=== PATIENT | male | born 1990 | race African-American/Black ===

== ENCOUNTER 2020-07-18 18:04 | Inpatient (IN) | payer SELFPAY ==
[~2020-07-18 18:04] MED LIST: Iopamidol-370 76% 500 ML 1 ML ONE
[2020-07-18 18:59] LABS: #Basophils 0.1 thou/uL (0.0-0.2); #Lymphocytes 1.8 thou/uL (1.20-3.40); #Monocytes 1.5 thou/uL (0.11-0.59); #Neutrophils 12.4 thou/uL (1.40-6.50); %Basophils 0.5 % (0.0-1.0); %Eosinophils 0.2 % (0.0-10.0); %Lymphocytes 11.3 % (21.0-51.0); %Monocytes 9.6 % (0.0-10.0); %Neutrophils 78.4 % (42.0-75.0); Hemoglobin 13.9 g/dL (14.0-18.0); Mean Corpuscular HGB CONC 34.1 g/dL (32.0-36.0); Mean Corpuscular Hemoglobin 29.9 pg (27.0-31.0); Mean Corpuscular Volume 87.5 fL (78.0-98.0); Mean Platelet Volume 8.7 fL (7.4-10.4); Platelet Count 179 thou/uL (130-400); RBC Distribution Width 11.6 % (11.5-14.5); Red Blood Cell (RBC) Count 4.67 mill/uL (4.70-6.10); White Blood Cell (WBC) Count 15.8 thou/uL (4.8-10.8)
[2020-07-18 19:17] LABS: ALT (SGPT) 29 U/L (8-55); AST (SGOT) 29 U/L (5-34); Albumin 4.1 g/dL (3.5-5.0); Alkaline Phosphatase 83 U/L (40-110); Anion Gap 15 mmol/L (10-20); BUN (Urea Nitrogen) 8 mg/dL (8.9-20.6); Bilirubin, Total 1.2 mg/dL (0.2-1.2); Calc. Creatinine Clearance 0 mL/min (70-130); Calcium 9.2 mg/dL (7.8-10.44); Carbon Dioxide 27 mmol/L (22-29); Chloride 95 mmol/L (98-107); Globulin 4.1 g/dL (2.4-3.5); Glucose 109 mg/dL (70-105); Lipase Less than 4 U/L (8-78); Potassium 3.8 mmol/L (3.5-5.1); Protein, Total 8.2 g/dL (6.0-8.3); Sodium 133 mmol/L (136-145)
[2020-07-18 22:03] LABS: Bilirubin Negative (Negative); Blood, Urine Negative (Negative); Clarity Clear (Clear); Glucose, Urine (Dipstick) Normal (Negative); Ketone, Urine Trace mg/dL (Negative); Leukocyte 250 Leu/uL (Negative); Mucous/LPF 1+ LPF (<2+); Nitrite Negative (Negative); Protein, Urine (Dipstick) 50 mg/dL (Neg-Trace); RBC/HPF 0-3 HPF (0-3); Renal Epithelial 0-3 HPF (None Seen); Specific Gravity, Urine 1.026 (1.002-1.036); Squamous Epithelial None Seen HPF (0-3); Urobilinogen 3 mg/dL (Less than 2); WBC/HPF 21-50 HPF (0-3)
[2020-07-18 22:10] LABS: Bacteria/HPF 2+ HPF (None Seen)
[2020-07-19] MEDS ORDERED: Piperacillin/Tazobactam 3.375 GM VIAL ONE ×3 (00:45→18:10)
[2020-07-19 05:32] LABS: SARS-CoV-2 NAA Rapid Test Not Detected (NotDetected)
--- NOTE | 2020-07-19 07:58 | CT ---
CT OF THE ABDOMEN AND PELVIS WITH IV CONTRAST: INDICATION: History of abdominal pain, melena, and hematuria. COMPARISON: None. FINDINGS: There is mild bibasilar atelectasis, left greater than right. Small hiatal hernia. There are peripheral areas of portal venous gas seen within the anterior right hepatic lobe and later al left hepatic lobe. The gallbladder, pancreas, adrenal glands, and kidneys appear within normal limits. There is a contained perforation involving the medial aspect of the descending colon measuring 3.7 x 8.5 cm in its greatest mediolateral, AP, and craniocaudad dimensions respectively. No definite drain able fluid collection is evident. There are a few scattered diverticula involving the colon. There is a normal appendix I the right lower quadrant. Small bowel is of normal caliber. The visualized s tomach is unremarkable-appearing. Bladder, rectum, and perirectal soft tissues are unremarkable appearing. No acute osseous abnormalit y is evident. IMPRESSION: 1. Findings of a focal short segment of prominent narrowing involving the descending colon with a co ntained rupture seen along the medial aspect of the descending colon. There is inflammatory strandin g and a gas collection seen adjacent to the contained perforation. Findings may be related to a shor t segment of diverticulitis but malignancy is not excluded. There is portal venous gas within the li concepción suspicious for gas dissection into the portal venous system. Surgical consultation is recommende d. 2. Findings called to Dr. Torres at 12:48 a.m. on 07/19/2020. CODE CR POS: LYN
[2020-07-19] MEDS ORDERED: Ondansetron HCl/PF 4 MG in Sodium Chloride 0.9% 50 ML IVPB PRN (08:14)
[2020-07-19] MEDS: Sodium Chloride 0.9% 1,000 ML IV SCH ×2 (08:25→20:16)
[2020-07-19] MEDS: Morphine 2 MG/ML VIAL SLOW IVP PRN ×3 (08:27→16:40)
[2020-07-19] MEDS: Pantoprazole 40 MG VIAL IVP SCH (08:28)
[2020-07-19] MEDS ORDERED: Sodium Chloride 0.9% 1,000 ML IV SCH (08:30)
--- NOTE | 2020-07-19 08:49 | HP ---
CHIEF COMPLAINT: Left lower quadrant abdominal pain. HISTORY OF PRESENT ILLNESS: The patient is a 29-year-old male who developed sudden onset of severe left lower quadrant abdominal pain Oz morning associated with nausea, vomiting, progressed over the weekend, associated with fever to 101. Last bowel movement was yesterday. PAST MEDICAL HISTORY: Otherwise obesity. PAST SURGICAL HISTORY: None. ALLERGIES: NO KNOWN DRUG ALLERGIES. MEDICATIONS: No medications. SOCIAL HISTORY: He is engaged to be . Smokes one pack per day. Social alcohol. FAMILY HISTORY: Noncontributory. PHYSICAL EXAMINATION: VITAL SIGNS: Temperature 99.3, pulse 97, blood pressure 111/68. GENERAL: Obese male, lying still, awake, alert. HEENT: Unremarkable. LUNGS: Clear. HEART: Regular rate and rhythm. ABDOMEN: Obese, soft, tender in the left lower quadrant. EXTREMITIES: Unremarkable. I do not feel any masses or hernias. LABORATORY DATA: His white count is 15.8, H and H of 13 and 40, and platelet count 179. Electrolytes; elevated glucose at 109. Urine, 21 to [address] cells[address] COVID negative. CT scan shows what appears to be a perforated sigmoid diverticulum. There was a bubble of extraluminal air. No defined abscess cavity that could be drained. ASSESSMENT: Local perforation of sigmoid diverticula. PLAN: Admit. Bowel rest. IV antibiotics. If he improves, delayed surgery. If not, more urgent surgery with diverting colostomy. Job ID: [id number]
[2020-07-19 08:51] LABS: #Basophils 0.1 thou/uL (0.0-0.2); #Eosinphils 0.1 thou/uL (0.0-0.7); #Lymphocytes 1.5 thou/uL (1.20-3.40); #Monocytes 1.4 thou/uL (0.11-0.59); #Neutrophils 9.2 thou/uL (1.40-6.50); %Basophils 0.5 % (0.0-1.0); %Lymphocytes 12.2 % (21.0-51.0); %Monocytes 11.5 % (0.0-10.0); %Neutrophils 74.9 % (42.0-75.0); Hemoglobin 12.7 g/dL (14.0-18.0); Mean Corpuscular Hemoglobin 30.5 pg (27.0-31.0); Mean Corpuscular Volume 89.6 fL (78.0-98.0); Mean Platelet Volume 8.3 fL (7.4-10.4); Platelet Count 174 thou/uL (130-400); RBC Distribution Width 11.6 % (11.5-14.5); Red Blood Cell (RBC) Count 4.18 mill/uL (4.70-6.10); White Blood Cell (WBC) Count 12.2 thou/uL (4.8-10.8)
[2020-07-19] MEDS ORDERED: metroNIDAZOLE 250 MG TAB ONE (09:01)
[2020-07-19] MEDS ORDERED: metroNIDAZOLE 500 MG/100 ML BAG ONE ×2 (09:03→17:14)
[2020-07-19] MEDS: metroNIDAZOLE 500 MG in Premix Bag 1 BAG IVPB SCH ×2 (09:04→17:15)
[2020-07-19 09:15] LABS: Anion Gap 12 mmol/L (10-20); BUN (Urea Nitrogen) 8 mg/dL (8.9-20.6); Calc. Creatinine Clearance 1 mL/min (70-130); Calcium 8.6 mg/dL (7.8-10.44); Carbon Dioxide 27 mmol/L (22-29); Chloride 100 mmol/L (98-107); Glucose 119 mg/dL (70-105); Sodium 135 mmol/L (136-145)
[2020-07-19] MEDS ORDERED: Morphine 4 MG/ML VIAL ONE ×3 (12:33→16:28)
[2020-07-19] MEDS: Piperacillin/Tazobactam 3.375 GM in Sodium Chloride 0.9% 100 ML IVPB SCH ×2 (12:53→18:16)
[2020-07-19] MEDS: Morphine 4 MG/ML VIAL SLOW IVP PRN (20:17)
[2020-07-20] MEDS: Morphine 4 MG/ML VIAL SLOW IVP PRN ×2 (00:05→07:41)
[2020-07-20] MEDS: Piperacillin/Tazobactam 3.375 GM in Sodium Chloride 0.9% 100 ML IVPB SCH ×4 (00:05→16:17)
[2020-07-20] MEDS: Sodium Chloride 0.9% 1,000 ML IV SCH ×3 (01:57→16:18)
[2020-07-20 03:50] LABS: #Eosinphils 0.2 thou/uL (0.0-0.7); #Lymphocytes 1.5 thou/uL (1.20-3.40); #Monocytes 1.2 thou/uL (0.11-0.59); #Neutrophils 8.7 thou/uL (1.40-6.50); %Basophils 0.4 % (0.0-1.0); %Eosinophils 2.1 % (0.0-10.0); %Lymphocytes 12.8 % (21.0-51.0); %Monocytes 10.4 % (0.0-10.0); %Neutrophils 74.4 % (42.0-75.0); Hemoglobin 12.2 g/dL (14.0-18.0); Mean Corpuscular Hemoglobin 30.1 pg (27.0-31.0); Mean Corpuscular Volume 88.7 fL (78.0-98.0); Mean Platelet Volume 8.3 fL (7.4-10.4); Platelet Count 204 thou/uL (130-400); RBC Distribution Width 11.7 % (11.5-14.5); Red Blood Cell (RBC) Count 4.05 mill/uL (4.70-6.10); White Blood Cell (WBC) Count 11.7 thou/uL (4.8-10.8)
[2020-07-20 04:14] LABS: Anion Gap 11 mmol/L (10-20); BUN (Urea Nitrogen) 8 mg/dL (8.9-20.6); Calc. Creatinine Clearance 0 mL/min (70-130); Calcium 8.8 mg/dL (7.8-10.44); Carbon Dioxide 25 mmol/L (22-29); Chloride 101 mmol/L (98-107); Glucose 96 mg/dL (70-105); Potassium 4.1 mmol/L (3.5-5.1); Sodium 133 mmol/L (136-145)
[2020-07-20] MEDS: metroNIDAZOLE 500 MG in Premix Bag 1 BAG IVPB SCH ×3 (05:24→16:18)
[2020-07-20] MEDS: Pantoprazole 40 MG VIAL IVP SCH (07:43)
[2020-07-20] MEDS ORDERED: FLU VACC QS2020-21(6MOS UP)/PF 60 MCG/0.5 ML SYRINGE IM ONE (09:45)
--- NOTE | 2020-07-20 09:54 | PRG ---
DATE OF SERVICE: SUBJECTIVE: He was very hungry and tried to drink some fluids, but it made him cramp up, so he is just on water, but he is tolerating the water fine now. No nausea or vomiting. OBJECTIVE: VITAL SIGNS: He had a T-max of 101.6 at 8 o'clock last night, but he has been afebrile since. His heart rate is 97, blood pressure 128/77. GENERAL: He looks awake, alert, does not appear to be in any distress. He is still a little bit tender in the left lower quadrant. LABORATORY DATA: His white count is down to 11.7 from 15, H and H 12 and 35, platelet count of 204. Electrolytes are fine. ASSESSMENT: Diverticulitis with perforation contained. PLAN: If he spikes another temp, I would recommend a repeat CT of the abdomen. If he is developing an abscess, I would like to get him up ambulating. Job ID: [id number]
[2020-07-20] MEDS: Morphine 2 MG/ML VIAL SLOW IVP PRN ×3 (11:34→21:13)
[2020-07-20] MEDS ORDERED: Acetaminophen 325 MG TAB PO PRN (17:34)
[2020-07-20] MEDS: Ketorolac Tromethamine 30 MG/ML VIAL IVP PRN ×2 (18:22→23:59)
[2020-07-21 00:27] VITALS: BMI 42.9
[2020-07-21] MEDS: Sodium Chloride 0.9% 1,000 ML IV SCH ×3 (02:07→18:22)
[2020-07-21 04:06] LABS: #Eosinphils 0.3 thou/uL (0.0-0.7); #Lymphocytes 1.6 thou/uL (1.20-3.40); #Monocytes 1.1 thou/uL (0.11-0.59); #Neutrophils 8.3 thou/uL (1.40-6.50); %Basophils 0.3 % (0.0-1.0); %Lymphocytes 14.4 % (21.0-51.0); %Monocytes 9.8 % (0.0-10.0); %Neutrophils 72.5 % (42.0-75.0); Mean Corpuscular HGB CONC 33.2 g/dL (32.0-36.0); Mean Corpuscular Hemoglobin 29.4 pg (27.0-31.0); Mean Corpuscular Volume 88.5 fL (78.0-98.0); Platelet Count 236 thou/uL (130-400); RBC Distribution Width 11.8 % (11.5-14.5); Red Blood Cell (RBC) Count 4.07 mill/uL (4.70-6.10); White Blood Cell (WBC) Count 11.4 thou/uL (4.8-10.8)
[2020-07-21 04:33] LABS: Anion Gap 11 mmol/L (10-20); BUN (Urea Nitrogen) 7 mg/dL (8.9-20.6); Calc. Creatinine Clearance 221 mL/min (70-130); Calcium 8.8 mg/dL (7.8-10.44); Carbon Dioxide 27 mmol/L (22-29); Chloride 102 mmol/L (98-107); Glucose 92 mg/dL (70-105); Potassium 3.8 mmol/L (3.5-5.1); Sodium 136 mmol/L (136-145)
[2020-07-21] MEDS: Piperacillin/Tazobactam 3.375 GM in Sodium Chloride 0.9% 100 ML IVPB SCH ×5 (05:16→23:12)
[2020-07-21] MEDS: metroNIDAZOLE 500 MG in Premix Bag 1 BAG IVPB SCH ×3 (05:17→16:01)
[2020-07-21] MEDS: Ketorolac Tromethamine 30 MG/ML VIAL IVP PRN ×4 (06:45→23:11)
[2020-07-21] MEDS: Morphine 2 MG/ML VIAL SLOW IVP PRN (07:32)
[2020-07-21] MEDS: Pantoprazole 40 MG VIAL IVP SCH (07:32)
--- NOTE | 2020-07-21 12:24 | PRG ---
DATE OF SERVICE: 07/21/2020 SUBJECTIVE: The patient reports he is passing a little flatus, but he gets crampy abdominal pain any time he tries to eat and he has not had a bowel movement. Left lower quadrant pain persists. PHYSICAL EXAMINATION: VITAL SIGNS: Temperature is 98, pulse 77, blood pressure 145/73. GENERAL: He is up walking, in minimal distress. ABDOMEN: Soft, slightly distended. There is a little bit of tenderness in the left lower quadrant. LABORATORY DATA: His white count is 11.4, H/H 12 and 36, platelet count of 236. ASSESSMENT: Possible pelvic abscess. PLAN: CT of abdomen and pelvis. Job ID: [id number]
--- NOTE | 2020-07-21 12:38 | CT ---
CT ABDOMEN AND PELVIS WITH IV CONTRAST 07/21/2020 CLINICAL INFORMATION: Follow-up perforated diverticulitis COMPARISON: 07/19/2020 Technique: Multiple contiguous axial CT images are obtained through the abdomen and pelvis with IV contrast. Cor onal reformatted images are provided. FINDINGS: Lower Chest: Atelectasis is present right lung base. There is a trace left pleural effusion with cons olidation left lung base. Consolidation left lung base may be related to atelectasis, but pneumonia cannot be excluded. Vessels: Abdominal aorta is normal in caliber. Abdomen: Portal vein:Patent Gallbladder: Within normal limits for CT imaging. Liver: within normal limits. There was mention of portal venous gas seen on the prior examination whi ch is not visualized on the current exam. Spleen: within normal limits. Pancreas: within normal limits. Adrenals: within normal limits. Kidneys: within normal limits. Bowel: Again noted is focal narrowing with mild bowel wall thickening and adjacent inflammatory yi es involving the descending colon with evidence of adjacent focal contained perforation which is slightly more defined on current study with small air-fluid level now present. The collection measure s 8.3 cm craniocaudal x6.3 cm AP x5.2 cm transverse. Appendix: The appendix is visualized and normal in caliber. Peritoneum/retroperitoneum: Few mildly prominent left para-aortic lymph nodes are present likely reac tive in origin. No additional fluid collection is seen. Trace amount of fluid is seen in the left paracolic gutter. Abdominal Wall: within normal limits. Pelvis: Reproductive Organs: No pelvic masses. Bladder: within normal limits. Bones: No suspicious lytic or sclerotic osseous lesions. IMPRESSION: 1. Focal area of narrowing and suggested bowel wall thickening involving the descending colon with ev idence of adjacent inflammatory changes as well as contained rupture. The gas collection is now more defined with air-fluid level now present. Again, these findings may be related to short segment of diverticulitis with contained perforation, but malignancy cannot be excluded. 2. Interval development of trace left pleural effusion with consolidation left lung base. Area of con solidation may be related to atelectasis, but pneumonia is a possibility.
[2020-07-21] MEDS ORDERED: Iopamidol-370 76% 500 ML 1 ML ONE (13:53)
[2020-07-22] MEDS: Sodium Chloride 0.9% 1,000 ML IV SCH ×4 (02:41→20:00)
[2020-07-22] MEDS: metroNIDAZOLE 500 MG in Premix Bag 1 BAG IVPB SCH ×3 (05:01→17:40)
[2020-07-22] MEDS: Piperacillin/Tazobactam 3.375 GM in Sodium Chloride 0.9% 100 ML IVPB SCH ×4 (06:10→23:25)
[2020-07-22] MEDS: Ketorolac Tromethamine 30 MG/ML VIAL IVP PRN ×3 (06:15→23:25)
[2020-07-22 06:36] LABS: PTT 31.5 sec (22.9-36.1)
[2020-07-22 06:37] LABS: INR-International Normal Ratio 1.2; Prothrombin Time 15.3 sec (12.0-14.7)
--- NOTE | 2020-07-22 08:20 | PRG ---
DATE OF SERVICE: SUBJECTIVE: The patient had CT scan yesterday that showed he has a developing abscess that is amenable to CT drainage. I talked with the radiologist. He had him scheduled for procedure this morning. The patient refused to sign, stating he wanted to talk to me first, even though we had discussed yesterday, so hopefully we can get him back on schedule today. OBJECTIVE: GENERAL: He says he is feeling better. He is passing some gas. VITAL SIGNS: His temperature is 98.4, pulse 76, blood pressure 124/75. ABDOMEN: Soft. Minimal tenderness. LABORATORY DATA: His white count is 11.4, H and H 12 and 36, platelet count 236. Electrolytes are fine. ASSESSMENT: Diverticular abscess. PLAN: CT drainage. Job ID: [id number]
[2020-07-22] MEDS: Pantoprazole 40 MG VIAL IVP SCH (08:50)
[2020-07-22] MEDS ORDERED: Sodium Bicarbonate 2.5 MEQ/5 ML VIAL ONE (09:09)
[2020-07-22] MEDS ORDERED: Midazolam HCl 2 mg/2 ml Vial ONE (09:09)
[2020-07-22] MEDS ORDERED: Fentanyl 100 MCG/2 ML VIAL ONE (09:09)
[2020-07-22 11:53] LABS: Body Fluid Source Abscess Fluid
[2020-07-22 11:54] LABS: BF Color Gray; Clarity Cloudy/Turbid (Clear)
--- NOTE | 2020-07-22 13:20 | CT ---
EXAM: CT Retroperitoneal Abscess Drn DATE: 07/22/2020 9:20 AM INDICATION: Percutaneous drainage of a left lower quadrant pericolonic abscess COMPARISON: CT the abdomen and pelvis dated July 21, 2020 TECHNIQUE: Informed consent was obtained. Preprocedure CT images were obtained for guidance purposes only. Site overlying the left lateral aspect of the abdomen was marked. The site was prepped and draped in the usual sterile fashion. Buffered 1% lidocaine was administered to the overlying subcutan eous tissues. The patient underwent conscious sedation under guidance of the radiology nurse and received 2 mg of IV Versed and 100 mcg of IV fentanyl. Under CT fluoroscopic guidance, a 5 [place]ese Maggy h catheter was guided down into the collection. An 035 Amplatz wire was guided into the collection. An 8 Taiwanese soft tissue dilator was then used in the left lateral abdominal wall. Following this, an 8 [place]ese all-purpose drain was guided over the wire into the fluid collection. The pigtail catheter was then formed after removing the wire. There was aspiration of 20 cc of purulent fluid. Approximate ly 1 cc was sent for cultures and Gram stain. Patient tolerated the procedure without difficulty. FINDING: Pericolonic abscess adjacent to the descending colon. IMPRESSION:Successful CT-guided percutaneous drainage of a left lower quadrant pericolonic abscess.
[2020-07-22] MEDS: Morphine 2 MG/ML VIAL SLOW IVP PRN (20:03)
[2020-07-23] MEDS: Piperacillin/Tazobactam 3.375 GM in Sodium Chloride 0.9% 100 ML IVPB SCH ×4 (05:24→23:56)
[2020-07-23] MEDS: metroNIDAZOLE 500 MG in Premix Bag 1 BAG IVPB SCH ×3 (05:25→17:57)
[2020-07-23] MEDS: Ketorolac Tromethamine 30 MG/ML VIAL IVP PRN ×3 (08:49→23:56)
[2020-07-23] MEDS: Pantoprazole 40 MG VIAL IVP SCH (08:50)
[2020-07-23] MEDS: Sodium Chloride 0.9% 1,000 ML IV SCH (09:02)
--- NOTE | 2020-07-23 09:31 | PRG ---
DATE OF SERVICE: 07/23/2020 Mr. Brown feels better, however, having drain site pain. On physical examination, he is afebrile. Vital signs are stable. His abdomen is appropriately tender. Drain is purulent. Stable status post diverticular abscess. Advance diet today. Encouraged ambulation. Hep-Lock IV. Probably home tomorrow. Job ID: [id number]
[2020-07-24] MEDS: metroNIDAZOLE 500 MG in Premix Bag 1 BAG IVPB SCH ×2 (05:02→08:43)
[2020-07-24] MEDS: Piperacillin/Tazobactam 3.375 GM in Sodium Chloride 0.9% 100 ML IVPB SCH (06:27)
[2020-07-24 07:55] VITALS: BP 110/75; TEMP 98.1
[2020-07-24] MEDS: Pantoprazole 40 MG VIAL IVP SCH (08:44)
[2020-07-24] MEDS: Ketorolac Tromethamine 30 MG/ML VIAL IVP PRN (08:49)
--- NOTE | 2020-07-24 09:16 | DIS ---
DATE OF ADMISSION: 07/19/2020 DATE OF DISCHARGE: 07/24/2020 ADMIT DIAGNOSIS: Perforated sigmoid diverticulitis. DISCHARGE DIAGNOSIS: Perforated sigmoid diverticulitis. PROCEDURE PERFORMED: CT-guided percutaneous drainage of diverticular abscess without complication. CONDITION AT DISCHARGE: Improved. STAFF: Yuriy. HOSPITAL COURSE: On the day of discharge, the patient is doing well. He is tolerating regular diet. His pain is controlled. He is going to be discharged home. He will keep this drain in. He will continue daily flushes as per previous instructions. See Dr. Yan back next week for possible repeat CT scan versus removing the drain. Prescriptions for [place], Zofran, Cipro, Flagyl sent to [facility] on [address] Job ID: [id number]
--- NOTE | 2020-07-26 10:26 | CT ---
EXAM: CT Retroperitoneal Abscess Drn DATE: 07/22/2020 9:20 AM INDICATION: Percutaneous drainage of a left lower quadrant pericolonic abscess COMPARISON: CT the abdomen and pelvis dated July 21, 2020 TECHNIQUE: Informed consent was obtained. Preprocedure CT images were obtained for guidance purposes only. Site overlying the left lateral aspect of the abdomen was marked. The site was prepped and draped in the usual sterile fashion. Buffered 1% lidocaine was administered to the overlying subcutan eous tissues. The patient underwent conscious sedation under guidance of the radiology nurse and received 2 mg of IV Versed and 100 mcg of IV fentanyl. Under CT fluoroscopic guidance, a 5 Norwegian Maggy h catheter was guided down into the collection. An 035 Amplatz wire was guided into the collection. An 8 Norwegian soft tissue dilator was then used in the left lateral abdominal wall. Following this, an 8 Norwegian all-purpose drain was guided over the wire into the fluid collection. The pigtail catheter was then formed after removing the wire. There was aspiration of 20 cc of purulent fluid. Approximate ly 1 cc was sent for cultures and Gram stain. Patient tolerated the procedure without difficulty. FINDING: Pericolonic abscess adjacent to the descending colon. IMPRESSION:Successful CT-guided percutaneous drainage of a left lower quadrant pericolonic abscess. Transcribed Date/Time: 07/26/2020 10:26 AM
== END 2020-07-24 10:50 | disposition home or self-care (01) | DRG 872 ==
LOC: ERS 18:04 → ERHOLD 07-19 01:35 → IMCU/EMU 07-19 19:22 → SURG B 07-21 20:39
PROVIDERS: ADMIT Surgery; ATTEND Surgery
PROC: 0D9N3ZZ Drainage of Sigmoid Colon, Percutaneous Approach (ICD-10-PCS; principal; 2020-07-22)
DX: A41.9 Sepsis, unspecified organism (principal); N39.0 Urinary tract infection, site not specified; K57.20 Diverticulitis of large intestine with perforation and abscess without bleeding; Z68.41 Body mass index [BMI] 40.0-44.9, adult; Z20.822 Contact with and (suspected) exposure to COVID-19; E66.9 Obesity, unspecified; F17.200 Nicotine dependence, unspecified, uncomplicated
CPT/HCPCS: 36415; 49060; 74177; 77002; 80048; 80053; 81003; 81015; 83605; 83690; 85025; 85060; 85610; 85730; 87040; 87070; 87077; 87086; 87186; 87205; 89051; 96365; C1729; C9113; J1885; J2250; J2270; J2543; J3010; J3490; Q9967; U0002

== ENCOUNTER 2022-03-12 20:45 | Emergency (ER) | payer OTHER, SELFPAY | END 2022-03-12 23:41 | disposition home or self-care (01) | LOC: ERS 20:45 | DX: S39.012A Strain of muscle, fascia and tendon of lower back, initial encounter (principal); W52.XXXA Crushed, pushed or stepped on by crowd or human stampede, initial encounter; Y93.61 Activity, american tackle football; Y92.830 Public park as the place of occurrence of the external cause | CPT/HCPCS: 99282 ==

== ENCOUNTER 2023-04-04 18:25 | Emergency (ER) | payer SELFPAY ==
[2023-04-04] MEDS ORDERED: cefTRIAXone (ROCEPHIN) 500 MG VIAL ONE (19:35)
[2023-04-04] MEDS ORDERED: Lidocaine 1% MPF 2 ML VIAL ONE (19:36)
[2023-04-04 19:57] LABS: Bacteria/HPF None Seen HPF (None Seen); Bilirubin Negative (Negative); Blood, Urine Negative (Negative); CAUTI Indications for Culture Pelvic or flank pain; Clarity Clear (Clear); Glucose, Urine (Dipstick) Normal (Negative); Ketone, Urine Negative (Negative); Leukocyte 250 Leu/uL (Negative); Nitrite Negative (Negative); Protein, Urine (Dipstick) Negative (Neg-Trace); RBC/HPF 0-3 HPF (0-3); Specific Gravity, Urine 1.009 (1.002-1.036); Squamous Epithelial 0-3 HPF (0-3); Urobilinogen Normal mg/dL (Less than 2); pH, Urine 6.5 (5.0-9.0)
[2023-04-04 19:59] LABS: Urine Culture Reflex Yes Yes
[2023-04-05 05:37] LABS: Chlam.trachomatis by PCR,Urine DETECTED (NotDetected); GC N.gonorrhoeae PCR,UrineVOID Not Detected (NotDetected)
== END 2023-04-04 21:07 | disposition home or self-care (01) ==
LOC: ERS 18:25
DX: R36.9 Urethral discharge, unspecified (principal); F17.290 Nicotine dependence, other tobacco product, uncomplicated
CPT/HCPCS: 81001; 87086; 87491; 87591; 96372; 99283; J0696

== ENCOUNTER 2023-07-08 14:46 | Emergency (ER) | payer SELFPAY | END 2023-07-08 17:17 | disposition home or self-care (01) | LOC: ERS 14:46 | DX: J02.0 Streptococcal pharyngitis (principal); F17.290 Nicotine dependence, other tobacco product, uncomplicated; F12.10 Cannabis abuse, uncomplicated | CPT/HCPCS: 87430; 99283 ==

== ENCOUNTER 2024-05-14 00:12 | Emergency (ER) | payer SELFPAY ==
[2024-05-14 00:27] LABS: #Basophils 0.06 10x3/uL (0.0-0.2); %Basophils 0.6 % (0.0-1.0); %Eosinophils 1.5 % (0.0-10.0); %Lymphocytes 28.7 % (21.0-51.0); %Monocytes 8.6 % (0.0-10.0); %Neutrophils 60.1 % (42.0-75.0); Hematocrit 40.3 % (42.0-52.0); Hemoglobin 13.9 g/dL (14.0-18.0); Mean Corpuscular HGB CONC 34.5 g/dL (32.0-36.0); Mean Corpuscular Hemoglobin 30.5 pg (27.0-31.0); Mean Corpuscular Volume 88.6 fL (78.0-98.0); Platelet Count 198 10x3/uL (130-400); RBC Distribution Width 12.7 % (11.5-14.5); Red Blood Cell (RBC) Count 4.55 mill/uL (4.70-6.10)
[2024-05-14 00:44] LABS: ALT (SGPT) 27 U/L (8-55); AST (SGOT) 20 U/L (5-34); Albumin 3.2 g/dL (3.5-5.0); Alkaline Phosphatase 43 U/L (40-110); Anion Gap 13 mmol/L (10-20); BUN (Urea Nitrogen) 9 mg/dL (8.9-20.6); Bilirubin, Total 0.3 mg/dL (0.2-1.2); Calc. Creatinine Clearance 0 mL/min (70-130); Calcium 8.3 mg/dL (7.8-10.44); Carbon Dioxide 28 mmol/L (22-29); Chloride 106 mmol/L (98-107); Estimated GFR 95; Globulin 2.3 g/dL (2.4-3.5); Glucose 177 mg/dL (70-105); Potassium 3.8 mmol/L (3.5-5.1); Protein, Total 5.5 g/dL (6.0-8.3); Sodium 143 mmol/L (136-145)
[2024-05-14 00:50] LABS: Troponin I Less than 0.010 ng/mL (< 0.028)
== END 2024-05-14 04:00 | disposition home or self-care (01) ==
LOC: ERS 00:12
DX: E86.1 Hypovolemia (principal)
CPT/HCPCS: 80053; 84484; 85025; 93005; 96360